=== PATIENT | female | born 1945 | race Caucasian/White ===

== ENCOUNTER 2017-08-03 15:51 | Emergency (ER) | payer OTHER, MEDICAID ==
[~2017-08-03] VITALS: Ht 152.4 cm; Wt 70.0 kg
[~2017-08-03 15:51] MED LIST: HYDR-3533 PO; NITR.3 SL; PAXI20TA26 PO; TAB-TAB PO
[2017-08-03 15:54] VITALS: BP 199/77; PULSE 85; RESP 20; TEMP 99; O2SAT 97
[2017-08-03] MEDS ORDERED: ALPRAZolam 1 MG TAB PO ONE (17:45)
[2017-08-03] MEDS ORDERED: LORA-474 PO (17:46)
--- NOTE | 2017-08-03 17:46 | PD ---
HPI . Anxiety Chief Complaint: Psychiatric Symptoms Time Seen by Provider: 17:27 Travel History International Travel<30 days: No Contact w/Intl Traveler<30days: No Traveled to known affect area: No History of Present Illness HPI Patient presents complaining with anxiety. She states that she feels tense and shaking. Onset of these symptoms were today. She states that she has not been able sleep for the last 3 nights. She states that she's been talking excessively. She states that she hasn't felt like this in 20 years. She states that she has been on Paxil for many years. She denies homicidal ideation. PFSH Past Medical History Arthritis: No Autoimmune Disease: No Blood Disorders: No Cancer: No Cardiovascular Problems: Yes Chemotherapy: No Cerebrovascular Accident: Yes Diabetes: No Endocrine: No GERD: Yes Genitourinary: No Hepatitis: No Hiatal Hernia: No Hypertension: Yes (HX OF HTN BUT HAS LOST WEIGHT) Immune Disorder: No Kidney Stones: No Musculoskeletal: Yes (NECK FUSION) Neurologic: No Psychiatric: Yes (ANXIETY, DEPRESSION) Reproductive: Yes (PELVIC PROLAPE, HYSTERECTOMY ) Respiratory: Yes Radiation Therapy: No Renal Failure: No Sickle Cell Disease: Yes Thyroid Disease: No Ulcer: Yes ?: Not Past Surgical History Abdominal Surgery: No Cardiac Surgery: No Ear Surgery: No Endocrine Surgery: No Eye Surgery: No Genitourinary Surgery: Yes (BLADDER SURGERY) Gynecologic Surgery: Yes (PARTIAL HYSTERECTOMY AT AGE 32) Hysterectomy: Yes Oral Surgery: Yes (TONSILECTOMY AGE 28) Thoracic Surgery: No Other Surgery: Yes (3 hemmorhoid surgeries) Social History Alcohol Use: No Tobacco Use: No Substance Use: No Allergies-Medications (Allergen,Severity, Reaction): Coded Allergies: penicillin G (Unverified Allergy, Severe, 08/03/17) RASH aspirin (Unverified Allergy, Mild, 08/03/17) PT DENIES ALLERGY amitriptyline (Unverified Adverse Reaction, Severe, 08/03/17) GI erythromycin base (Unverified Adverse Reaction, Severe, 08/03/17) HEART RACED perphenazine (Unverified Adverse Reaction, Severe, 08/03/17) GI prochlorperazine (Unverified Adverse Reaction, Severe, 08/03/17) RAPID HEART RATE, UNABLE TO SLEEP Reported Meds & Prescriptions Reported Meds & Active Scripts Active Lortab 5 mg/325 mg (Hydrocodone/Acetaminophen 5 mg/325 mg) 1 Tab 1 Tab PO Q6H PRN Reported Nitrostat (Nitroglycerin) 0.3 Mg Subl 0.3 Mg SL PRN FOR CHEST PAIN Multivitamin (Multivitamins) 1 Tab Tab 1 Tab PO DAILY Paxil (Paroxetine HCl) 20 Mg Tab 20 Mg PO BID Review of Systems Except as stated in HPI: all other systems reviewed are Neg Psychiatric: Positive: Anxiety, Other (tense and shaky. insomnia.), No: Suicidal Ideations, Disorder of Thought, Substance Abuse Physical Exam Narrative GENERAL: Awake and alert and in no acute distress. SKIN: Warm and dry. HEAD: Normocephalic/atraumatic. EYES: Pupils are equal. Extraocular movements are intact. NECK: Normal range of motion. CARDIOVASCULAR: Regular rate and rhythm. RESPIRATORY: Nonlabored respirations. MUSCULOSKELETAL: Atraumatic. NEUROLOGICAL: Nonfocal. PSYCHIATRIC: Good eye contact. No SI/HI. She does not appear to be responding to any internal stimuli. Data Data Last Documented VS Vital Signs Date Time Temp Pulse Resp B/P (MAP) Pulse Ox O2 Delivery O2 Flow Rate FiO2 08/03/17 15:54 99.0 85 20 199/77 (117) 97 Room Air Orders Orders Alprazolam (Xanax) (08/03/17 17:45) [facility] Medical Decision Making Medical Screen Exam Complete: Yes Emergency Medical Condition: Yes Medical Record Reviewed: Yes (medical history is hypertension and anxiety. I do not see any previous psychiatric admissions for her.) Differential Diagnosis My differential diagnosis anxiety includes but is not limited to generalized anxiety disorder, depression, psychoses, drug abuse, alcohol abuse Narrative Course This patient presents complaining with feeling tense and shaky. She has had insomnia for the last several days. I will treat her with Xanax and discharge her to home. I have talked to the psych screener. They will provide her a packet of resources. Diagnosis Primary Impression: Anxiety Patient Instructions: Anxiety (DC), General Instructions Med/Other Pt SpecificInfo: Prescription(s) given Scripts Lorazepam (Ativan) 1 Mg Tab 1 MG PO Q6H Y for ANXIETY AND/OR AGITATION, #10 TAB 0 Refills Prov: Sally Chung MD 08/03/17 Disposition: 01 DISCHARGE HOME Condition: Stable Sally Chung MD Aug 03, 2017 17:46
== END 2017-08-03 18:40 | disposition home or self-care (01) ==
LOC: NEPE 15:51
DX: F41.9 Anxiety disorder, unspecified (principal); I10 Essential (primary) hypertension; K21.9 Gastro-esophageal reflux disease without esophagitis; Z86.73 Personal history of transient ischemic attack (TIA), and cerebral infarction without residual deficits; Z79.899 Other long term (current) drug therapy; Z88.0 Allergy status to penicillin; Z88.1 Allergy status to other antibiotic agents; Z88.8 Allergy status to other drugs, medicaments and biological substances
CPT/HCPCS: 99283